=== PATIENT | female | born 1960 | race Hispanic/Latino ===

== ENCOUNTER 2019-10-31 06:52 | Day surgery (SDC) | payer OTHER ==
[2019-10-31] MEDS ORDERED: SODIUM CHLORIDE 0.9% 1000 ML 1,000 ML IV SCH (07:00)
[2019-10-31] MEDS ORDERED: WATER FOR IRRIG STERILE 250 ML BOTTLE IR ONE (07:32)
[2019-10-31] MEDS ORDERED: LIDOCAINE (2%) 20 MG/1 ML VIAL 20 ML MDV INFILTRATI ONE (07:40)
[2019-10-31] MEDS ORDERED: PROPOFOL 200 MG/20 ML VIAL IV ONE ×2 (07:41)
--- NOTE | 2019-10-31 07:50 | Anesthesia Day of Surgery ---
Anesthesia Day of Surgery - Day of Surgery Patient Examined: Yes Patient H&P Reviewed: Yes Patient is NPO: Yes Beta Blockers: No
--- NOTE | 2019-10-31 07:51 | Anesthesia Consultation ---
Anesthesia Consult and Med Hx - Airway Anesthetic Teeth Evaluation: Good ROM Head & Neck: Adequate Mental/Hyoid Distance: Adequate Mallampati Class: Class II Intubation Access Assessment: Probably Good - Pulmonary Exam CTA: Yes - Cardiac Exam Cardiac Exam: RRR - Pre-Operative Health Status ASA Pre-Surgery Classification: ASA2 Proposed Anesthetic Plan: General, MAC - Cardiovascular System Hx Hypertension: Yes Hx Coronary Artery Disease: No - Central Nervous System Hx Neuromuscular Disorder: No - Gastrointestinal Hx Ulcer: No
[2019-10-31] MEDS ORDERED: LIDOCAINE MPF (2%) 20 MG/1 ML VIAL 5 ML ONE (08:00)
--- NOTE | 2019-10-31 08:59 | Short Stay Summary ---
Short Stay Documentation Date of service: 10/31/19 Narrative H&P: The patient presents for her first screening colonoscopy. Average risk profile. - History Past Medical History: hypertension Past Surgical History: No surgical history Social history: no significant social history - Allergies and Medications Current Medications: Allergies Penicillins Allergy (Intermediate, Verified 10/31/19 07:57) Hives latex Allergy (Verified 10/31/19 07:53) CAUSES LITTLE BLISTERS/FEVER BLISTERS ON SKIN Home Medications Medication Instructions Recorded Confirmed Last Taken Type Hydrochlorothiazide 12.5 mg PO DAILY 10/31/19 10/31/19 10/31/19 History Lisinopril 40 mg PO DAILY 10/31/19 10/31/19 10/31/19 History Active Medications Sodium Chloride (Nacl 0.9% 1000 Ml) 1,000 mls @ 50 mls/hr IV DIRECT KRISTEN Stop: 10/31/19 23:00 Last Admin: 10/31/19 07:49 Dose: 50 mls/hr Documented by: - Physical exam General appearance: no acute distress, well-nourished Integumentary: no rash, no growths, no abnormal pigmentation HEENT: Atraumatic, PERRLA, EOMI, Mucous membr. moist/pink Lungs: Normal air movement Breasts: deferred Heart: Regular rate, Normal S1, Normal S2, No murmurs Gastrointestinal: normoactive bowel sounds, no tenderness, no distended, no masses, no guarding, no organomegaly, no obese Female Genitourinary: deferred Rectal Exam: normal exam-external/orifice, no mass Extremities: no ischemia, pulses intact, pulses symmetrical, No edema, normal te mperature, normal color, Full ROM Neurological: Normal gait, Normal speech, Strength at 5/5 X4 ext, Normal tone, Sensation intact, Cranial nerves 3-12 NL - Brief post op/procedure progress note Date of procedure: 10/31/19 Findings: see dictation Estimated blood loss: none Pathology: list (2 descending colon polyps, 1 sigmoid polyp) Specimen disposition: to lab Condition: stable - Disposition Condition at discharge: Good Disposition: - TO HOME OR SELFCARE - Discharge Diagnoses (1) Colon cancer screening Status: Acute Short Stay Discharge Plan Activity: other (no driving for 24 hours.) Weight Bearing Status: Full Weight Bearing Diet: regular Follow up with: SENIA WEST MD [Primary Care Provider] - 7 Days
--- NOTE | 2019-10-31 09:02 | Operative Report ---
Operative Report Operative Report: Date of procedure: 10/31/2019 Preprocedure diagnosis: Cancer screening, average risk. No prior studies. Post procedure diagnosis: 2 small descending colon polyps, one sigmoid polyp. Procedure: Colonoscopy to the cecum with cold snare polypectomy 3 Endoscopist: Dr. Reynaga Anesthesia: Monitored anesthesia care per anesthesia department Estimated blood loss: 0 Medications: Monitored anesthesia care. See separate report by anesthesia for details. After careful discussion of the nature and purpose of the procedure as well as details of the technique risks benefits and alternatives the patient gave consent. Please see recent history and physical from the office. The patient was placed in the left lateral decubitus position and medicated per anesthesia. A rectal exam was performed sphincter tone was normal there were no masses palpable. The Olympus colonoscope was passed transanally and advanced under continuous direct vision without difficulty to the cecum. The colon was well prepared. The cecum was normal. The ascending colon was normal and on forward and retroflexed views. The transverse colon was normal. There were 2 small descending colon polyps both semi-pedunculated and from 5-6 mm in size. Both polyps were removed with cold snare resection and retrieved by suction. A 5 mm sessile distal sigmoid polyp was also found and removed by cold snare resection and retrieved by suction likewise. The rectum was normal on forward and retroflexed views. The procedure was well-tolerated overall and the patient was observed in recovery. Conclusions: 2 small ascending colon polyps and one sigmoid polyp. Plan: Await pathology. The patient will call the office in 10 days. Repeat colonoscopy in 3-5 years depending upon the pathology. Signed electronically: Mega Reynaga M.D.
[2019-10-31 09:30] VITALS: BP 134/87
--- NOTE | 2019-10-31 10:15 | Post Anesthesia Evaluation ---
- Post Anesthesia Evaluation Patient Participated: Yes Airway Patent: Yes Stable Respiratory Function: Yes Nausea/Vomiting: No Temp > 96.8F: Yes Pain Manageable: Yes Adequeate Hydration: Yes Anesthesia Complications: No Block Receding Appropriately: Not Applicable Patient on Ventilator: No
== END 2019-10-31 06:53 | disposition home or self-care (01) ==
LOC: GIO 06:52
PROVIDERS: ATTEND Internal Medicine Gastroenterology
DX: Z12.11 Encounter for screening for malignant neoplasm of colon (principal); D12.4 Benign neoplasm of descending colon; I10 Essential (primary) hypertension; Z88.0 Allergy status to penicillin; Z91.040 Latex allergy status; Z79.899 Other long term (current) drug therapy; Z98.890 Other specified postprocedural states
CPT/HCPCS: 45385; 88305; J2704; J7030